=== PATIENT | male | born 1930 | race Caucasian/White ===

== ENCOUNTER 2018-08-21 10:26 | Emergency (ER) | payer MEDICARE ==
[2018-08-21 11:18] VITALS: BP 142/89
--- NOTE | 2018-08-21 12:40 | UC ---
Throat Pain/Nasal Paramjit HPI - HPI Summary HPI Summary: 87-year-old male comes in with a chief complaint of throat congestion. Been going on for couple of days. It's worse at nighttime when he is laying down. Last 2 days he's woke up with a hard time breathing he's had to sit up and then clear his throat and then is able to breathe better again. No fevers or chills. He does feel congestion in his chest. When he coughs he brings up white sputum. He does report some thoracic back pain with coughing. With the coughing spells he does get some hiccups. 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 He's had difficulties with his airway in the past because of this condition. - History of Current Complaint Chief Complaint: UCGeneralIllness Stated Complaint: THROAT COMPLAINT Time Seen by Provider: 08/21/18 12:24 Pain Intensity: 5 - Allergies/Home Medications Allergies/Adverse Reactions: Allergies Allergy/AdvReac Type Severity Reaction Status Date / Time iv dye Allergy Rash Uncoded 08/21/18 11:19 Home Medications: Home Medications Atorvastatin* [Lipitor*] 10 mg PO DAILY 08/21/18 [History Confirmed 08/21/18] Clopidogrel TAB* [Plavix TAB*] 75 mg PO DAILY 08/21/18 [History Confirmed ] Levothyroxine TAB* [Synthroid TAB*] 25 mcg PO DAILY 08/21/18 [History Confirmed 08/21/18] PMH/Surg Hx/FS Hx/Imm Hx Previously Healthy: Yes - 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 Endocrine History: Hypothyroidism, Dyslipidemia - Surgical History Surgical History: Yes Surgery Procedure, Year, and Place: lobectomy R LUNG - Family History Known Family History: Positive: Hypertension, Other - Cancer - Social History Alcohol Use: None Substance Use Type: None Smoking Status (MU): Former Smoker Type: Cigarettes - Immunization History Most Recent Influenza Vaccination: 2014 Most Recent Pneumonia Vaccination: none Review of Systems All Other Systems Reviewed And Are Negative: Yes Constitutional: Positive: Negative Skin: Positive: Negative Eyes: Positive: Negative ENT: Positive: Other - see hpi Respiratory: Positive: Other - see hpi Cardiovascular: Positive: Negative Gastrointestinal: Positive: Negative Motor: Positive: Negative Neurovascular: Positive: Negative Musculoskeletal: Positive: Negative Neurological: Positive: Negative Psychological: Positive: Negative Is Patient Immunocompromised?: No Physical Exam Triage Information Reviewed: Yes Appearance: Well-Appearing, No Pain Distress, Well-Nourished Vital Signs: Initial Vital Signs Temp 98.9 F 08/21/18 11:12 Pulse 67 08/21/18 11:12 Resp 16 08/21/18 11:12 BP 142/89 08/21/18 11:12 Pulse Ox 99 08/21/18 11:12 Vital Signs Reviewed: Yes Eye Exam: Normal Eyes: Positive: Conjunctiva Clear ENT: Positive: Pharynx normal, TMs normal, Uvula midline Neck: Positive: Nontender, Other: - kyphotic neck Respiratory: Positive: Lungs clear, Normal breath sounds, No respiratory distress Cardiovascular: Positive: RRR Musculoskeletal Exam: Normal Musculoskeletal: Positive: Strength Intact, ROM Intact Neurological Exam: Normal Neurological: Positive: Alert, Muscle Tone Normal Psychological: Positive: Age Appropriate Behavior Skin Exam: Normal Throat Pain/Nasal Course/Dx - Course Course Of Treatment: 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 By history this has contributed to him having a small airway and difficulty swallowing chronically. Patient tells me he is able to eat and drink normally. When he has the congestion in his throat he has a hard time breathing was he clears that his breathing becomes normal. He has a hard time swallowing pills therefore I wrote prescriptions for liquid guaifenesin liquid Zyrtec and liquid Fei azithromycin. Patient does have chest congestion is not obvious that he has a bacterial infection at this time but because of his risk factors we are going to treat with an antibiotic at this time. I discussed with the patient and the patient's son that if he is having any trouble breathing he gets worse he needs to go to the emergency department. - Differential Dx/Diagnosis Provider Diagnosis: Upper respiratory infection Discharge - Sign-Out/Discharge Documenting (check all that apply): Patient Departure All imaging exams completed and their final reports reviewed: No Studies - Discharge Plan Condition: Stable Disposition: HOME Prescriptions: Azithromycin 200/5 SUSP(NF) [Zithromax 200 mg/5 ml SUSP(NF)] 0 mg PO SEE INSTRUCTIONS #1 btl Cetirizine HCl 10 mg PO DAILY #60 ml guaiFENesin [Guaifenesin] 200 mg PO Q4HR PRN #120 ml PRN Reason: Congestion Patient Education Materials: Upper Respiratory Infection (ED) Referrals: Delroy Young MD [Primary Care Provider] - Additional Instructions: FOLLOW UP WITH YOUR DOCTOR. GO TO THE EMERGENCY DEPARTMENT IF YOUR CONDITION WORSENS; DIFFICULTY BREATHING, SHORTNESS OF BREATH, YOU FEEL ILL OR ANY QUESTIONS OR CONCERNS. - Billing Disposition and Condition Condition: STABLE Disposition: Home
== END 2018-08-21 12:53 | disposition home or self-care (01) ==
LOC: UCEAST 10:26
DX: J06.9 Acute upper respiratory infection, unspecified (principal); E03.9 Hypothyroidism, unspecified; E78.5 Hyperlipidemia, unspecified; Z87.891 Personal history of nicotine dependence
CPT/HCPCS: 99212; G0463

== ENCOUNTER 2021-06-18 11:48 | Observation (INO) ==
[2021-06-18] MEDS ORDERED: NS 0.9% 1000 ml BAG 1,000 ML IV ONE (13:54)
[2021-06-18 14:35] LABS: ABS Basophils 0.1 10^3/ul (0-0.2); ABS Monocytes 1.1 10^3/ul (0-0.8); ABS Neutrophils 13.4 10^3/ul (1.5-7.7); ABS Nucleated RBC 0.1 10^3/ul; Eosinophil % 0.1 %; Hematocrit 51 % (42-52); Hemoglobin 17.2 g/dL (14.0-18.0); Lymphocyte % 6.2 %; Mean Corpuscular HGB Conc 34 g/dL (31-36); Mean Corpuscular Hemoglobin 32 pg (27-31); Mean Corpuscular Volume 93 fL (80-94); Mean Platelet Volume 7.7 fL (7.4-10.4); Nucleated Red Blood Cells % 0.6; Platelet Count 265 10^3/uL (150-450); Red Blood Count 5.45 10^6 /uL (4.18-5.48); Red Cell Distribution Width 13 % (10-15); White Blood Count 15.5 10^3/uL (3.5-10.8)
[2021-06-18 14:49] LABS: Activated Partial Thrombo Time 27.7 seconds (26.0-38.0); INR 1.04 (0.86-1.15)
[2021-06-18 15:27] LABS: Albumin/Globulin Ratio 1.9 (1-3); Calcium 9.9 mg/dL (8.6-10.3); Globulin 2.7 g/dL (2-4); Magnesium 2.3 mg/dL (1.9-2.7); Potassium 4.1 mmol/L (3.5-5.0); Total Bilirubin 0.9 mg/dL (0.2-1.0); Total Protein 7.7 g/dL (6.4-8.9); eGFR CKD-EPI 74.2 (>60)
[2021-06-18 15:35] LABS: TSH Ultra Thyroid Stim Horm 2.32 mcIU/mL (0.34-5.60)
[2021-06-18 16:01] LABS: High Sensitivity Troponin 1 Hr 24 pg/mL (<20)
[2021-06-18 17:41] LABS: Urine Appearance Clear; Urine Bilirubin Negative (Negative); Urine Blood Negative (Negative); Urine Color Straw; Urine Glucose Negative (Negative); Urine Ketones Trace (Negative); Urine Nitrite Negative (Negative); Urine Protein Negative (Negative); Urine Specific Gravity 1.006 (1.002-1.030); Urine Urobilinogen Negative (Negative)
[2021-06-18] MEDS ORDERED: Albuterol HFA INHALER 8 gm MDI INH PRN (18:33)
[2021-06-19 08:03] LABS: ABS Eosinophils 0.1 10^3/ul (0-0.6); ABS Lymphocytes 2.5 10^3/ul (1.0-4.8); ABS Monocytes 1.4 10^3/ul (0-0.8); ABS Neutrophils 7.9 10^3/ul (1.5-7.7); Eosinophil % 0.6 %; Hematocrit 46 % (42-52); Hemoglobin 15.5 g/dL (14.0-18.0); Lymphocyte % 21.1 %; Mean Corpuscular HGB Conc 34 g/dL (31-36); Mean Corpuscular Hemoglobin 32 pg (27-31); Mean Corpuscular Volume 94 fL (80-94); Mean Platelet Volume 8.1 fL (7.4-10.4); Nucleated Red Blood Cells % 0.1; Platelet Count 251 10^3/uL (150-450); Red Blood Count 4.87 10^6 /uL (4.18-5.48); Red Cell Distribution Width 13 % (10-15); White Blood Count 11.9 10^3/uL (3.5-10.8)
[2021-06-19 08:12] LABS: Calcium 9.2 mg/dL (8.6-10.3); Potassium 3.8 mmol/L (3.5-5.0); eGFR CKD-EPI 70.7 (>60)
[2021-06-19] MEDS ORDERED: COVID-19 VACCINE, TRIS(PFIZER)/PF 30 MCG/0.3 ML IM ONE (13:00)
[2021-06-20 15:39] VITALS: BP 130/59
== END 2021-06-20 17:53 | disposition home or self-care (01) ==
LOC: ED 11:48 → EDHOLD 11:48 → MEDTELE 06-19 00:07
PROVIDERS: ADMIT Internal Medicine; ATTEND Internal Medicine